=== PATIENT | male | born 1950 | race Caucasian/White ===

== ENCOUNTER 2023-04-04 12:57 | Outpatient (RCR) | payer OTHER, SELFPAY ==
[2023-04-04 13:08] VITALS: BP 105/75
[2023-04-04] MEDS: NSS 500 IV (13:15)
[2023-04-04 13:54] VITALS: BP 142/81
[2023-04-04 14:00] VITALS: BP 140/79
== END 2023-04-19 23:59 | disposition home or self-care (01) ==
LOC: OID 12:57
PROVIDERS: ATTENDING PHYSICIAN Internal Medicine Hematology & Oncology; FAMILY PHYSICIAN Family Medicine
DX: E83.110 Hereditary hemochromatosis (principal)
CPT/HCPCS: 96360; 99195

== ENCOUNTER → 2023-06-13 12:49 | Outpatient (REF) | payer OTHER, SELFPAY | LOC: RAD 12:49 | PROVIDERS: ATTENDING PHYSICIAN Family Medicine | DX: M25.512 Pain in left shoulder (principal); G89.29 Other chronic pain | CPT/HCPCS: 73030 ==

== ENCOUNTER 2023-08-03 13:22 | Outpatient (RCR) | payer OTHER, SELFPAY ==
[2023-08-03 13:55] VITALS: BP 129/70
[2023-08-03] MEDS: NSS 500 IV (13:59)
[2023-08-03 14:35] VITALS: BP 136/67
[2023-08-03 14:40] VITALS: BP 136/87
== END 2023-08-04 10:08 | disposition home or self-care (01) ==
LOC: OID 13:22
PROVIDERS: ATTENDING PHYSICIAN Internal Medicine Hematology & Oncology; FAMILY PHYSICIAN Family Medicine
DX: E83.110 Hereditary hemochromatosis (principal)
CPT/HCPCS: 96360; 99195

== ENCOUNTER 2023-12-12 13:41 | Outpatient (RCR) | payer OTHER, SELFPAY ==
[2023-12-12 13:50] VITALS: BP 111/69
[2023-12-12] MEDS: NSS 500 IV (14:08)
[2023-12-12 14:41] VITALS: BP 127/76
[2023-12-12 14:55] VITALS: BP 139/72
[2023-12-12 14:59] VITALS: BP 145/77
== END 2023-12-18 23:59 | disposition home or self-care (01) ==
LOC: OID 13:41
PROVIDERS: ATTENDING PHYSICIAN Internal Medicine Hematology & Oncology; FAMILY PHYSICIAN Family Medicine
DX: E83.110 Hereditary hemochromatosis (principal)
CPT/HCPCS: 96360; 99195

== ENCOUNTER 2024-05-21 13:34 | Outpatient (RCR) | payer OTHER, SELFPAY ==
[2024-05-21 13:45] VITALS: BP 120/58
[2024-05-21] MEDS: NSS 500 IV (13:57)
[2024-05-21 14:35] VITALS: BP 122/60
[2024-05-21 14:40] VITALS: BP 113/72
== END 2024-05-22 08:17 | disposition home or self-care (01) ==
LOC: OID 13:34
PROVIDERS: ATTENDING PHYSICIAN Internal Medicine Hematology & Oncology; FAMILY PHYSICIAN Family Medicine
DX: E83.110 Hereditary hemochromatosis (principal)
CPT/HCPCS: 96360; 99195

== ENCOUNTER 2024-10-01 13:38 | Outpatient (RCR) | payer OTHER, SELFPAY ==
[2024-10-01 13:45] VITALS: BP 121/66
[2024-10-01] MEDS: NSS 500 IV (13:55)
[2024-10-01 14:25] VITALS: BP 128/71
[2024-10-01 14:30] VITALS: BP 128/65
[2024-10-01 14:35] VITALS: BP 138/79
== END 2024-10-17 23:59 | disposition home or self-care (01) ==
LOC: OID 13:38
PROVIDERS: ATTENDING PHYSICIAN Nurse Practitioner Adult Health
DX: E83.110 Hereditary hemochromatosis (principal)
CPT/HCPCS: 96360; 99195

== ENCOUNTER → 2024-11-28 10:51 | Outpatient (REF) | payer OTHER, SELFPAY | LOC: HWRAD 10:51 | PROVIDERS: ATTENDING PHYSICIAN Family Medicine | DX: R51.9 Headache, unspecified (principal); H92.03 Otalgia, bilateral; H93.13 Tinnitus, bilateral | CPT/HCPCS: 70450; 70486 ==

== ENCOUNTER 2024-12-19 13:35 | Outpatient (RCR) | payer OTHER, SELFPAY ==
[2024-12-19 14:00] VITALS: BP 106/69
[2024-12-19] MEDS: NSS 500 IV (14:18)
[2024-12-19 15:00] VITALS: BP 117/66
[2024-12-19 15:05] VITALS: BP 138/77
== END 2025-01-17 23:59 | disposition home or self-care (01) ==
LOC: OID 13:35
PROVIDERS: ATTENDING PHYSICIAN Nurse Practitioner Adult Health
DX: E83.110 Hereditary hemochromatosis (principal)
CPT/HCPCS: 96360; 99195

== ENCOUNTER → 2025-02-05 08:04 | Outpatient (REF) | payer OTHER, SELFPAY | LOC: REG 08:04 | PROVIDERS: ATTENDING PHYSICIAN Family Medicine | DX: G89.29 Other chronic pain (principal); M25.561 Pain in right knee; M25.562 Pain in left knee; R42 Dizziness and giddiness | CPT/HCPCS: 73564; 93005 ==